=== PATIENT | female | born 1990 | race Caucasian/White ===

== ENCOUNTER 2017-09-10 12:05 | Emergency (ER) | payer OTHER ==
[2017-09-10] MEDS ORDERED: IPRATROPIUM-ALBUTEROL 3 ML NEB INHALATION STA (12:37)
[2017-09-10] MEDS ORDERED: IBUPROFEN 400 MG TAB PO STA (12:37)
[2017-09-10] MEDS ORDERED: ACETAMINOPHEN TAB 500 MG TAB PO STA (12:37)
[2017-09-10] MEDS ORDERED: PROMETHAZ-COD 6.25-10 MG/5 ML 5 ML CUP PO STA (12:42)
--- NOTE | 2017-09-10 12:45 | ED ---
URI HPI - General Chief Complaint: Upper Respiratory Infection Stated Complaint: Cough Time Seen by Provider: 09/10/17 12:32 Source: patient, RN notes reviewed, old records reviewed Mode of arrival: ambulatory Limitations: no limitations - History of Present Illness Initial Comments: This patient is a 27-year-old female presents emergency Department with 4 days of dry cough. She reports that she's been having a 1 day of right ear pain as well. She states that her friend's children are sick but her children and she states that she is a nonsmoker no history of asthma. She denies any specific chest pain. She states that when she takes a deep breath and she feels like it is very tight. She's reports that she's used inhalers child but nothing recently. Patient states that she has not had any recent vxfe-mgc-zybonhn medication including Motrin or Tylenol.Patient denies any recent chest pain, back pain, abdominal pain, nausea vomiting, numbness or tingling, dysuria or hematuria, constipation or diarrhea, headaches or visual changes, or any other current symptoms - Related Data Previous Rx's Medication Instructions Recorded Xgh-Lkad-Oztgn Acid 1 each PO DAILY #90 cap 07/03/14 [-U Capsule (formulary)] Albuterol Inhaler [Ventolin Hfa 1 - 2 puff INHALATION Q6HR PRN #1 09/10/17 Inhaler] inhaler Azithromycin [Zithromax] 250 mg PO DIRECTED #6 tab 09/10/17 Promethazine/Dextromethorphan 5 ml PO TID #120 ml 09/10/17 [Phenergan DM Syrup] methylPREDNISolone Dose Pack 4 mg PO DIRECTED #21 package 09/10/17 [Medrol Dose Pack] Allergies Allergy/AdvReac Type Severity Reaction Status Date / Time No Known Allergies Allergy Verified 09/10/17 12:28 Review of Systems ROS Statement: Those systems with pertinent positive or pertinent negative responses have been documented in the HPI. ROS Other: All systems not noted in ROS Statement are negative. Past Medical History Past Medical History: No Reported History Additional Past Medical History / Comment(s): Morbid obesity History of Any Multi-Drug Resistant Organisms: None Reported, MRSA Date of last positivie culture/infection: 2006 MDRO Source:: LEG Past Surgical History: Cholecystectomy Past Psychological History: No Psychological Hx Reported Smoking Status: Former smoker Past Alcohol Use History: Rare Past Drug Use History: None Reported - Past Family History Brother(s) History Unknown: Yes Family Medical History: Cancer Mother History Unknown: Yes Family Medical History: Cancer General Exam - General Exam Comments Initial Comments: 27-year-old female. No distress. Limitations: no limitations General appearance: alert, in no apparent distress Head exam: Present: atraumatic, normocephalic, normal inspection Eye exam: Present: normal appearance, PERRL, EOMI. Absent: scleral icterus, conjunctival injection, periorbital swelling ENT exam: Present: normal exam, mucous membranes moist Neck exam: Present: normal inspection. Absent: tenderness, meningismus, lymphadenopathy Respiratory exam: Present: wheezes (Patient has some minor wheezing noted. She has a nonproductive persistent cough.). Absent: normal lung sounds bilaterally , respiratory distress, rales, rhonchi, stridor Cardiovascular Exam: Present: regular rate, normal rhythm, normal heart sounds. Absent: systolic murmur, diastolic murmur, rubs, gallop, clicks GI/Abdominal exam: Present: soft, normal bowel sounds. Absent: distended, tenderness, guarding, rebound, rigid Extremities exam: Present: normal inspection, full ROM, normal capillary refill. Absent: tenderness, pedal edema, joint swelling, calf tenderness Back exam: Present: normal inspection Neurological exam: Present: alert, oriented X3, CN II-XII intact Psychiatric exam: Present: normal affect, normal mood Skin exam: Present: warm, dry, intact, normal color. Absent: rash Course Vital Signs 09/10/17 09/10/17 09/10/17 12:26 12:48 12:54 Temperature 99.4 F Pulse Rate 125 H 118 H 118 H Respiratory 24 Rate Blood Pressure 133/77 O2 Sat by Pulse 96 Oximetry Medical Decision Making - Medical Decision Making This patient is a 27-year-old female presents emergency Department treatment 4 days of upper respiratory congestion cough, right ear pain. At this time she has a significant nonproductive cough. Was given Motrin and Tylenol, and cough syrup. She did have a low-grade fever when she arrived emergency department. Patient did have some wheezing noted she was given a DuoNeb breathing treatment does have improvement. Patient chest x-ray was reviewed and negative for any acute process at this time. Discussion the past the window for treatment and azithromycin. I discussed following up with PCP. Discussed all questions. Return parameters were discussed. - Radiology Data Radiology results: report reviewed Patient chest x-rays reviewed and negative for any acute process. Disposition Clinical Impression: Bronchitis Disposition: HOME SELF-CARE Condition: Good Instructions: Upper Respiratory Infection in Children (ED) Additional Instructions: Patient is advised to follow-up with primary care physician. Take medications as prescribed using the inhaler as well for shortness of breath. Patient should rest, increase her fluid intake. Return to the emergency department if any alarming signs or symptoms occur. Prescriptions: Albuterol Inhaler [Ventolin Hfa Inhaler] 1 - 2 puff INHALATION Q6HR PRN #1 inhaler PRN Reason: Shortness Of Breath Azithromycin [Zithromax] 250 mg PO DIRECTED #6 tab methylPREDNISolone Dose Pack [Medrol Dose Pack] 4 mg PO DIRECTED #21 package Promethazine/Dextromethorphan [Phenergan DM Syrup] 5 ml PO TID #120 ml Referrals: None,Stated [Primary Care Provider] - 1-2 days Florence Burks MD [STAFF PHYSICIAN] - 1-2 days Time of Disposition: 13:13
--- NOTE | 2017-09-10 13:17 | XR ---
EXAMINATION TYPE: XR chest 2V DATE OF EXAM: 09/10/2017 COMPARISON: Prior chest x-ray 02/03/2014 HISTORY: Cough and congestion TECHNIQUE: Frontal and lateral views of the chest are obtained. FINDINGS: There is no focal air space opacity, pleural effusion, or pneumothorax seen. The cardiac silhouette size is within normal limits. The osseous structures are intact. Linear metallic density is superimposed over the neck. There is a spinal curvature. Surgical clips present in the right uppe r quadrant. There is bronchial wall thickening. IMPRESSION: Correlate for bronchitis, reactive airways disease, follow-up as indicated. Additional f indings above.
[2017-09-10 13:27] VITALS: BP 149/81; PULSE 99; RESP 20; TEMP 97.8
== END 2017-09-10 13:27 | disposition home or self-care (01) ==
LOC: EC 12:05
DX: J40 Bronchitis, not specified as acute or chronic (principal); H92.01 Otalgia, right ear; E66.01 Morbid (severe) obesity due to excess calories; Z68.42 Body mass index [BMI] 45.0-49.9, adult; Z87.891 Personal history of nicotine dependence
CPT/HCPCS: 71046; 94640; 99284

== ENCOUNTER 2020-04-26 11:31 | Inpatient (IN) | payer OTHER ==
[2020-04-26] MEDS ORDERED: CITRIC ACID-SODIUM CITRATE 15 ML CUP PO ONE (12:11)
[2020-04-26] MEDS ORDERED: ceFAZolin 3 GM in SODIUM CHLORIDE 0.9% 100 ML IVPB ONE (12:11)
--- NOTE | 2020-04-26 12:21 | P.HPOB ---
History of Present Illness H&P Date: 04/26/20 Chief Complaint: Strong regular uterine contractions. This is a 29-year-old female 2 para 1001 EDC 05/05/2020 at 38+ weeks gestation. Patient presents today with strong regular uterine contractions which she is rating 9 out of 10. She denies vaginal bleeding or fluid leakage. Fetus is been active throughout the with weekly nonstress tests performed. She is scheduled for repeat section and tubal ligation on 05-16. Past medical history is significant for morbid obesity, and abnormal placental pathology from 2014 revealing advanced maternal and vascular with a. Patient also has a history of childhood asthma. Past surgical history low transverse section 2014, cholecystectomy 2006. Current medications vitamins. ALLERGIES none known. Family history significant for diabetes uterine cancer and breast cancer. Social history patient is single, father of the baby is present. She is a former tobacco smoker but states she quit. She is employed at [employer]. history significant for blood type A positive, rubella status immune. VDRL testing, urine culture, hepatitis B surface antigen, HIV testing, gonorrhea and chlamydia cultures all negative. One-hour Glucola 117. On exam patient is 375 pounds, 5 foot 8 inches, blood pressure 147/98 on admission, initial pulse 150. The general physical exam is significant for poor dentition, tattoos on the body, morbid obesity. Chest is clear in all martínez. Cervix is fingertip, 50% effaced, -2 station, vertex presentation. heart rate is in the 140s with accelerations, however several subtle late decelerations are also noted. Uterine contractions are occurring approximately every 2 minutes apart and are strong in intensity. Impression: 38-5/7 weeks intrauterine , for repeat section in 2 days with tubal ligation, presenting in active labor. Occasional subtle late decelerations noted on heart tracing. Morbid obesity noted. Plan: Patient has been nothing by mouth since 10:00 last night. We will proceed with the repeat low transverse section and tubal ligation at this time. All risks benefits and alternatives have been discussed. Again patient is requesting tubal ligation with Filshie clips which will be performed, consents on the patient's chart. Review of Systems Constitutional: Reports as per HPI Past Medical History Past Medical History: No Reported History, Asthma Additional Past Medical History / Comment(s): Morbid obesity History of Any Multi-Drug Resistant Organisms: None Reported, MRSA Date of last positivie culture/infection: 2006 MDRO Source:: LEG Past Surgical History: Cholecystectomy Smoking Status: Former smoker - Past Family History Brother(s) History Unknown: Yes Family Medical History: Cancer Mother History Unknown: Yes Family Medical History: Cancer Medications and Allergies Home Medications Medication Instructions Recorded Confirmed Type Crd-Odch-Nkavx Acid 1 each PO DAILY #90 cap 07/03/14 04/26/20 Rx [-U Capsule (formulary)] Allergies Allergy/AdvReac Type Severity Reaction Status Date / Time No Known Allergies Allergy Verified 04/26/20 11:32 Exam Intake and Output 04/25/20 04/26/20 04/26/20 22:59 06:59 14:59 Other: Weight 174.179 kg See dictation under HPI Assessment and Plan Assessment: 38-5/7 weeks intrauterine , scheduled for repeat section in 2 days, in active labor. Subtle late decelerations noted. Requesting tubal ligation. Morbid obesity noted. Plan: We will proceed with primary low transverse section at this time. Tubal ligation will be performed. Antibiotic prophylaxis. All risks and benefits discussed in detail. Time with Patient: Less than 30
[2020-04-26] MEDS: LACTATED RINGERS 1,000 ML IV SCH ×3 (12:32→21:25)
[2020-04-26 12:48] LABS: Basophils # (A) 0.1 k/uL (0-0.2); Basophils % (A) 0 %; Eosinophils # (A) 0.2 k/uL (0-0.7); Eosinophils % (A) 1 %; HCT 44.3 % (34.0-46.0); HGB 14.6 gm/dL (11.4-16.0); Lymphocytes # (A) 3.2 k/uL (1.0-4.8); Lymphocytes % (A) 14 %; MCH 28.5 pg (25.0-35.0); MCV 86.5 fL (80.0-100.0); Mean Platelet Volume 7.7; Monocytes # (A) 1.1 k/uL (0-1.0); Monocytes % (A) 5 %; Neutrophils # (A) 18.7 k/uL (1.3-7.7); Neutrophils % (A) 80 %; Platelet Count 387 k/uL (150-450); RBC 5.12 m/uL (3.80-5.40); RDW 13.2 % (11.5-15.5); WBC 23.4 k/uL (3.8-10.6)
[2020-04-26] MEDS ORDERED: ePHEDrine SULFATE/0.9% NACL/PF 50 MG/5 ML SYRINGE IV ONE (13:35)
[2020-04-26] MEDS ORDERED: KETOROLAC 15 MG/ML 1 ML VIAL ONE (13:35)
[2020-04-26] MEDS ORDERED: MORPHINE SULFATE (PF) 0.3 MG/0.3 ML SYR ONE (13:35)
[2020-04-26] MEDS ORDERED: PHENYLEPHRINE-0.9% NACL SYG 1 MG/10 ML SYRINGE ONE (13:35)
[2020-04-26] MEDS ORDERED: OXYTOCIN 10 UNIT/ML 1 ML VIAL ONE (13:35)
[2020-04-26] MEDS ORDERED: NALBUPHINE 10 MG/ML (1 ML AMP) ONE (13:35)
[2020-04-26] MEDS ORDERED: ONDANSETRON 4 MG/2 ML VIAL ONE (13:35)
[2020-04-26] MEDS ORDERED: diphenhydrAMINE 50 MG/ML 1 ML VIAL IVP PRN ×2 (14:46)
[2020-04-26] MEDS ORDERED: ONDANSETRON 4 MG/2 ML VIAL IVP PRN (14:46)
[2020-04-26] MEDS ORDERED: METOCLOPRAMIDE 5 MG/ML 2 ML VIAL IVP PRN (14:46)
[2020-04-26] MEDS ORDERED: ACETAMINOPHEN TAB 325 MG TAB PO PRN (14:46)
[2020-04-26] MEDS ORDERED: diphenhydrAMINE 25 MG CAP PO PRN (14:46)
[2020-04-26] MEDS ORDERED: NALOXONE 0.4 MG/ML 1 ML VIAL IV PRN (14:46)
[2020-04-26] MEDS ORDERED: SIMETHICONE 80 MG CHEWABLE PO PRN (14:46)
[2020-04-26] MEDS ORDERED: ZOLPIDEM 5 MG TAB PO PRN (14:46)
[2020-04-26] MEDS ORDERED: diphenhydrAMINE 50 MG CAP PO PRN (14:46)
--- NOTE | 2020-04-26 14:46 | P.OP ---
Date of Procedure: 04/26/20 Preoperative Diagnosis: 38-5/7 weeks intrauterine , previous section declining , undesired fertility, active labor, morbid maternal obesity, late decelerations in triage. Postoperative Diagnosis: Liveborn female infant with scores of 9 and 9 at one and 5 minutes respectively. Normal-appearing tubes and ovaries bilaterally. 12 cm subcutaneous depth. Procedure(s) Performed: Repeat low transverse section, bilateral tubal ligation with Filshie clips Anesthesia: spinal Surgeon: Laura Andres Sieve Maker #1: Jaden Forbes Estimated Blood Loss (ml): 500 IV fluids (ml): 1,200 Urine output (ml): 100 Pathology: other (Placenta) Condition: stable Disposition: PACU Description of Procedure: Patient is brought to the operating room, 4 g of Ancef are given prophylacti tania. Khalil catheter placed to direct drainage. Vaginal prep was performed. Patient was extremely uncomfortable, borderline verbally combat ,in obvious pain of labor but also extremely anxious. The spinal analgesia was administered without difficulty. Patient is placed in the dorsal supine position. Left lateral uterine displacement is given. The abdomen is prepped and draped in usual sterile fashion. The pannus retractor is placed and seated appropriately. The analgesia is checked and noted to be adequate. A repeat low transverse skin incision is made in this is carried down through the subcutaneous tissue which is approximately 12 cm in depth. The fascia is isolated, scored, extended bilaterally with curved Rocha scissors. Peritoneum is next identified and incised, there is no bowel or bladder involvement. The large ring retractor is placed in the abdomen and seated properly for good exposure. The bladder flap is taken down with Metzenbaum scissors and Wallisian. A low transverse uterine incision is made. Entering the peritoneal cavity darkly meconium stained fluid is encountered. The incision is extended with blunt dissection. The 's head is delivered in the occiput anterior position. The oropharynx, nasopharynx, and external nares are bulb suctioned. Patient is officially delivered of a liveborn female infant at 1405 hrs. Umbilical cord is doubly clamped and ligated, she is handed to waiting nurses for evaluation where scores of 9 and 9 at one and 5 minutes respectively are given. weighed 3890 g or 8 lbs. 9 oz. The uterus is then externalized. The placenta is delivered manually, it is inspected and noted to be darkly meconium stained, intact with trivascular cord. Uterus is massaged. It is swept clean with a sterile sponge to avoid any retained products of conception. The uterus is closed in a single full-thickness stitch of 0 Vicryl for excellent reapproximation. Bilateral tubes and ovaries are inspected. Patient's desire for tubal ligation is again reaffirmed. Filshie clips are used in the isthmic portion of the tubes bilaterally with care to visualize the fimbriated ends for proper placement and positioning. The uterus is placed back into the abdominal cavity after the abdomen is suctioned with suction on guard. Bilateral gutters are inspected and cleaned. Incision is again noted to be intact and dry. Fascia is closed in a running stitch of 0 Vicryl with over ligation in the midline. Subcutaneous tissue is irrigated, Bovie catheter used on small vessels. It is reapproximated with 3-0 Vicryl in a running fashion. 4-0 undyed Monocryl is used for final subcuticular closure. Lungs Steri-Strips and Mastisol are applied to the wound. Uterus is massaged. Khalil is noted to be draining clear urine. Patient is brought back to recovery room in very good condition with stable vital signs including blood pressure 140/70, pulse 100.
[2020-04-26] MEDS: SENNOSIDES-DOCUSATE SODIUM 1 EACH TAB PO SCH (21:24)
[2020-04-26] MEDS: IBUPROFEN 600 MG TAB PO PRN (23:19)
[2020-04-27] MEDS ORDERED: diphenhydrAMINE 50 MG/ML 1 ML VIAL IVP PRN ×2 (01:39)
[2020-04-27] MEDS ORDERED: ONDANSETRON 4 MG/2 ML VIAL IVP PRN (01:40)
[2020-04-27] MEDS ORDERED: NALOXONE 0.4 MG/ML 1 ML VIAL IV PRN (01:40)
[2020-04-27] MEDS: LACTATED RINGERS 1,000 ML IV SCH ×3 (02:23→07:29)
--- NOTE | 2020-04-27 06:29 | P.PN ---
Progress Note - Text Date: 04/27/2020 Time: 06:06 The patient is status post section Vital signs stable VAS: 0-10 Patient has no complaints of pain. The patient incurred some minimal itching yesterday, this itching is now subsiding. Pain meds to be managed by service.
--- NOTE | 2020-04-27 07:46 | P.PN ---
Subjective Progress Note Date: 04/27/20 Principal diagnosis: Postoperative day #1 Minimal lochia rubra. Pain well controlled. Requesting dietary advance. No complaints. Objective - Vital Signs Vital signs: Vital Signs Temp 98.5 F 04/27/20 04:00 Pulse 92 04/27/20 04:00 Resp 18 04/27/20 04:00 BP 121/75 04/27/20 04:00 Pulse Ox 97 04/27/20 04:00 Intake & Output 04/26/20 04/27/20 04/27/20 18:59 06:59 18:59 Output Total 400 554 Balance -400 -554 Weight 174.179 kg Output: Urine 250 550 Uretheral (Khalil) 150 Emesis 150 4 Other: Voiding Method Toilet # Voids 0 - Constitutional General appearance: Present: morbidly obese - EENT Eyes: Present: PERRLA ENT: Present: hearing grossly normal - Respiratory Respiratory: bilateral: CTA - Cardiovascular Rhythm: regular - Gastrointestinal General gastrointestinal: Present: normal bowel sounds - Integumentary Integumentary Comment(s): Incision clean and dry, intact. Steri-Strips applied. Fundal exam difficult secondary to excessively large abdominal pannus. Integumentary: Present: normal - Neurologic Neurologic: Present: CNII-XII intact - Musculoskeletal Musculoskeletal: Present: gait normal, strength equal bilaterally - Psychiatric Psychiatric: Present: A&O x's 3, intact judgment & insight - Labs CBC & Chem 7: 04/26/20 12:24 Labs: Abnormal Lab Results - Last 24 Hours (Table) 04/26/20 Range/Units 12:24 WBC 23.4 H (3.8-10.6) k/uL Neutrophils # 18.7 H (1.3-7.7) k/uL Monocytes # 1.1 H (0-1.0) k/uL Assessment and Plan Assessment: Doing well postoperative day #1 Plan: Advance diet and activity. Prilosec as needed. Continue postoperative care. Anticipate discharge home tomorrow. Time with Patient: Less than 30
[2020-04-27 07:53] LABS: Basophils # (A) 0.1 k/uL (0-0.2); Basophils % (A) 0 %; Eosinophils # (A) 0.1 k/uL (0-0.7); Eosinophils % (A) 0 %; HCT 38.9 % (34.0-46.0); HGB 12.7 gm/dL (11.4-16.0); Lymphocytes # (A) 1.8 k/uL (1.0-4.8); Lymphocytes % (A) 10 %; MCH 28.9 pg (25.0-35.0); MCHC 32.6 g/dL (31.0-37.0); MCV 88.5 fL (80.0-100.0); Mean Platelet Volume 7.7; Monocytes # (A) 0.8 k/uL (0-1.0); Monocytes % (A) 4 %; Neutrophils # (A) 16.2 k/uL (1.3-7.7); Neutrophils % (A) 85 %; Platelet Count 305 k/uL (150-450); RDW 12.9 % (11.5-15.5); WBC 19.2 k/uL (3.8-10.6)
[2020-04-27] MEDS: KETOROLAC 15 MG/ML 1 ML VIAL IVP SCH ×2 (08:19→15:00)
[2020-04-27] MEDS: SENNOSIDES-DOCUSATE SODIUM 1 EACH TAB PO SCH ×2 (08:52→20:23)
[2020-04-27] MEDS: PANTOPRAZOLE 40 MG TABLET PO SCH (09:58)
[2020-04-27] MEDS: HYDROcodone/APAP 5-325MG 1 EACH TAB PO PRN ×2 (12:34→23:09)
[2020-04-27 23:51] VITALS: RESP 16
[2020-04-28] MEDS: IBUPROFEN 600 MG TAB PO PRN ×2 (05:58→14:05)
--- NOTE | 2020-04-28 07:59 | P.DS ---
Providers Date of admission: 04/26/20 12:02 Expected date of discharge: 04/28/20 Attending physician: Laura Andres Primary care physician: Stated None Hospital Course: This is a 29-year-old female 2 para 1001 EDC 05/06/2020 at 38-5/7 weeks' gestation. Patient was scheduled for repeat section and tubal ligation, however presented in active spontaneous labor. In addition, late decelerations were noted in the triage area. Patient was excessively anxious upon admission. Decision was made to proceed with section and tubal ligation at the time of admission. Group B strep cultures negative, rubella status immune, blood type A+. Please see dictated history and physical for details. Patient underwent a repeat low transverse section and tubal ligation, my estimated blood loss at this time of surgery was 500 mL's. She gave to a liveborn female infant with scores of 9 and 9 at one and 5 minutes respectively. weighed 3890 g or 8 lbs. 9 oz. There was dark meconium- stained fluid noted at the time of surgery. Please see dictated operative note for details. This morning the patient is doing well. She is voiding, ambulating, passing flatus without difficulty. Vital signs are stable and she is afebrile. Incision is clean and dry, intact with Steri-Strips applied. Minimal lochia rubra. Breasts are not engorged. is doing well. Patient is judged to be in good condition for discharge home. I reminded her no intercourse, tampons or douching. She will use xhbz-les-ohdduun Advil or Aleve, or Motrin as needed for pain. I've asked her to call me with any fevers shakes or chills, foul smelling or copious lochia, with the passage of large blood clots, with any pain not alleviated by fbif-cda-nylbaxb products, or indeed with any concerns. Assessment: Doing well postoperative day #2 Health Concerns: Morbid obesity Patient Condition at Discharge: Good Plan - Discharge Summary Discharge Rx Participant: No New Discharge Prescriptions: No Action Swr-Zrjh-Gfnlw Acid [-U Capsule (formulary)] 1 each PO DAILY #90 cap Discharge Medication List Str-Wuru-Lqszr Acid [-U Capsule (formulary)] 1 each PO DAILY #90 cap 07/03/14 [Rx] Follow up Appointment(s)/Referral(s): Laura Andres MD [STAFF PHYSICIAN] - 2 Weeks Discharge Disposition: HOME SELF-CARE
[2020-04-28 08:51] VITALS: BP 141/78; PULSE 79; TEMP 97.9
[2020-04-28] MEDS: SENNOSIDES-DOCUSATE SODIUM 1 EACH TAB PO SCH (09:09)
[2020-04-28] MEDS: PANTOPRAZOLE 40 MG TABLET PO SCH (09:09)
[2020-04-28] MEDS: HYDROcodone/APAP 5-325MG 1 EACH TAB PO PRN (10:30)
== END 2020-04-28 15:30 | disposition home or self-care (01) | DRG 784 ==
LOC: FBPOP 11:31 → 4FBP 12:02
PROVIDERS: ADMIT Obstetrics & Gynecology; ATTEND Obstetrics & Gynecology
PROC: 10D00Z1 Extraction of Products of Conception, Low, Open Approach (ICD-10-PCS; principal; 2020-04-26 13:35)
PROC: 0UL70CZ Occlusion of Bilateral Fallopian Tubes with Extraluminal Device, Open Approach (ICD-10-PCS; principal; 2020-04-26 13:35)
DX: O34.211 Maternal care for low transverse scar from previous cesarean delivery (principal); Z68.43 Body mass index [BMI] 50.0-59.9, adult; O76 Abnormality in fetal heart rate and rhythm complicating labor and delivery; O77.0 Labor and delivery complicated by meconium in amniotic fluid; O99.214 Obesity complicating childbirth; E66.01 Morbid (severe) obesity due to excess calories; Z30.2 Encounter for sterilization; Z37.0 Single live birth; Z3A.38 38 weeks gestation of pregnancy; Z80.3 Family history of malignant neoplasm of breast; Z80.49 Family history of malignant neoplasm of other genital organs; Z83.3 Family history of diabetes mellitus; Z87.09 Personal history of other diseases of the respiratory system; Z87.891 Personal history of nicotine dependence; Z90.49 Acquired absence of other specified parts of digestive tract; Z86.14 Personal history of Methicillin resistant Staphylococcus aureus infection
CPT/HCPCS: 59025; 84112; 85025; 86850; 86900; 86901; 99213

== ENCOUNTER → 2020-08-10 | Outpatient (CLI) | payer OTHER ==
[2020-08-10 13:34] VITALS: BP 135/96; PULSE 78; RESP 16; TEMP 98.1; BMI 55.2
[2020-08-10 15:22] LABS: HCT 41.3 % (34.0-46.0); HGB 14.2 gm/dL (11.4-16.0); MCH 29.6 pg (25.0-35.0); MCHC 34.5 g/dL (31.0-37.0); MCV 85.9 fL (80.0-100.0); Mean Platelet Volume 7.7; Platelet Count 304 k/uL (150-450); RDW 12.8 % (11.5-15.5); WBC 9.9 k/uL (3.8-10.6)
--- NOTE | 2020-08-10 17:20 | P.HPBAR ---
Bariatric H&P - History & Physicial H&P Date: 08/10/20 History & Physicial: Visit/CC: Initial Visit Patient initial contact: Initial weight: 164.654 kg Initial weight in pounds: 363.00 Height: 5 ft 8 in Initial BMI: 55.2 Last weight: Current weight: 164.654 kg Current weight in pounds: 363.00 Current BMI: 55.2 [place] body weight (based on NIH guidelines): 63.503 kg Excess body weight loss: 0.0% The patient is a 30 year-old F who presents for Bariatric Assessment. Patient presents to discuss weight loss surgery. Patient is known to our service from a laparoscopic cholecystectomy performed at age 13. Patient has had progressive weight gain over the years. Current BMI 55. Patient complains of mild GERD symptoms. Denies DVT or dysphagia in the past. No other medical history. Only abdominal surgeries are cholecystectomy and . Does not take any medications. Review of Systems The patient denies any acute changes in vision or hearing, no dysphagia or odynophagia, no chest pain or shortness of breath, no dysuria or hematuria, no headache, no runny nose, no rectal bleeding or melena, no unexplained weight loss Past Medical History Past Medical History: No Reported History Additional Past Medical History / Comment(s): Morbid obesity History of Any Multi-Drug Resistant Organisms: MRSA Year Discovered:: 2006 MDRO Source:: LEG Past Surgical History: Cholecystectomy Past Anesthesia/Blood Transfusion Reactions: No Reported Reaction Past Psychological History: No Psychological Hx Reported Smoking Status: Former smoker Past Alcohol Use History: Rare Additional Past Alcohol Use History / Comment(s): quit smoking 8 years sgo Past Drug Use History: None Reported - Past Family History Brother(s) History Unknown: Yes Family Medical History: Cancer Mother History Unknown: Yes Family Medical History: Cancer Surgical - Exam Vital Signs Temp Pulse Resp BP 98.1 F 78 16 135/96 08/10/20 13:30 08/10/20 13:30 08/10/20 13:30 08/10/20 13:30 Physical exam: General: Well-developed, well-nourished HEENT: Normocephalic, sclerae nonicteric Abdomen: Nontender, nondistended Extremities: No edema Neuro: Alert and oriented Results - Labs 08/10/20 14:28 Bariatric Assessment & Plan (1) Morbid obesity with BMI of 50.0-59.9, adult Narrative/Plan: 30-year-old female with morbid obesity. Surgical options reviewed in detail. Both gastric bypass and sleeve gastrectomy reviewed as surgical options. Risks and benefits of both procedures discussed. Patient remains interested in sleeve gastrectomy. We will plan preoperative EGD. Patient to be seen by her primary care physician. Medical clearance and support documentation will be obtained. The risks of bleeding, infection, stenosis, stricture, leak, abscess, fistula formation, peritonitis, poor weight loss, reflux, vomiting, conversion to an open procedure, aborting sleeve gastrectomy, UT, PE, DVT, and were discussed. The patient understands and wishes to proceed. Status: Acute Bariatric Checklist Checklist: Plan: Checklist: EGD: 1. Hiatal hernia: 2. H. Pylori: HgbA1c: Vitamin D: Smoking: Former smoker Primary care physician referral: Working on getting one Psychiatry clearance: Cardiology clearance: Sleep study: Diet journal: VTE risk score: VTE risk level: Rehab needs at discharge:
[2020-08-11 02:23] LABS: African American GFR (CKD) 132.9 (60.0-200.0); Albumin 4.5 g/dL (3.80-4.90); Albumin/Globulin Ratio 2.25 (1.60-3.17); Anion Gap 6.7 mmol/L (4.00-12.00); BUN/Creat Ratio 15.71 Ratio (12.00-20.00); Calcium 9.9 mg/dL (8.7-10.3); Carbon Dioxide 28.3 mmol/L (21.6-31.8); Non-African American GFR(CKD) 114.6 (60.0-200.0); Potassium 4.5 mmol/L (3.5-5.5); Total Bilirubin 0.2 mg/dL (0.3-1.2); Total Protein 6.5 g/dL (6.2-8.2)
[2020-08-11 02:31] LABS: Folate, Serum 6.9 ng/mL
[2020-08-11 03:34] LABS: Hemoglobin A1C 5.6 % (4.0-6.0)
== END | disposition home or self-care (01) ==
LOC: BARWHC3 13:09
PROVIDERS: ATTEND Surgery
DX: E66.01 Morbid (severe) obesity due to excess calories (principal); Z68.43 Body mass index [BMI] 50.0-59.9, adult; K90.89 Other intestinal malabsorption; E55.9 Vitamin D deficiency, unspecified
CPT/HCPCS: 84425; 80053; 82607; 82746; 85027; 82306; 83036; 93005; 36415; G0463; 99211

== ENCOUNTER → 2022-10-22 | Outpatient (CLI) | payer OTHER ==
[2022-10-22 13:51] VITALS: BP 142/85; PULSE 86; TEMP 98.1; BMI 57.6
--- NOTE | 2022-10-22 16:48 | P.BASOAP ---
Subjective Progress Note Date: 10/22/22 Principal diagnosis: Morbid obesity Patient returns to reinitiate bariatric workup. She was last seen in July 2020. Shortly thereafter the patient found out she was . Since that time the patient has had enlarging umbilical hernia. She was seen in my general surgery office last year for this. We discussed possibly proceeding with bariatric surgery first. Since she was seen in that office however the hernias gotten larger. Mild soreness at times. No nausea or vomiting. No imaging. Objective - Vital Signs Vital signs: Vital Signs Temp 98.1 F 10/22/22 13:42 Pulse 86 10/22/22 13:42 Resp BP 142/85 10/22/22 13:42 Pulse Ox FiO2 Intake & Output 10/21/22 10/22/22 10/22/22 18:59 06:59 18:59 Weight 169.644 kg - Exam Abdomen: Soft, obese, large incarcerated periumbilical hernia Assessment/Plan (1) Morbid obesity with BMI of 50.0-59.9, adult Narrative/Plan: 32-year-old female with enlarging umbilical hernia. Options reviewed. Will check CT abdomen and pelvis at this time. Patient may require repair of this hernia with possible umbolectomy prior to bariatric surgery. We'll contact patient after CAT scan obtained. Plan: Date: 10/22/22 Initial Weight: 164.654 kg Initial BMI: 56.0 Current Weight: 169.644 kg Current BMI: 57.6 Type of Surgery: Total Volume in Band: Previous Volume: Volume Removed: Volume Added: Band Size:
== END ==
LOC: BARWHC3 13:19
PROVIDERS: ATTEND Surgery
DX: E66.01 Morbid (severe) obesity due to excess calories (principal); K42.9 Umbilical hernia without obstruction or gangrene; Z68.43 Body mass index [BMI] 50.0-59.9, adult; Z87.891 Personal history of nicotine dependence
CPT/HCPCS: 99211

== ENCOUNTER → 2022-10-28 | Outpatient (CLI) | payer OTHER ==
[2022-10-28 15:29] LABS: HCT 40.1 % (37.2-46.3); HGB 13.3 g/dL (12.0-15.0); MCH 28.9 pg (27.0-32.0); MCHC 33.2 g/dL (32.0-37.0); Mean Platelet Volume 10.7 fL (9.5-12.2); NRBC Per 100 WBC 0 /100 WBCS (0.0-0.0); Platelet Count 339 X 10*3/uL (140-440); RBC 4.61 X 10*6/uL (4.10-5.20); RDW 12.3 % (11.5-14.5); WBC 12.16 X 10*3/uL (4.50-10.00)
[2022-10-28 16:49] LABS: ALT 14 U/L (8-44); AST 12 U/L (13-35); African American GFR (CKD) 133.4 (60.0-200.0); Albumin/Globulin Ratio 1.54 (1.60-3.17); Alkaline Phosphatase 53 U/L (41-126); BUN/Creat Ratio 14.59 Ratio (12.00-20.00); Blood Urea Nitrogen 9.7 mg/dL (9.0-27.0); Calcium 9.2 mg/dL (8.7-10.3); Carbon Dioxide 24.5 mmol/L (20.0-27.5); Chloride 105 mmol/L (96-109); Globulin 2.6 g/dL (1.6-3.3); Glucose 135 mg/dL (70-110); Iron 45 ug/dL (50-170); Non-African American GFR(CKD) 115.1 (60.0-200.0); Potassium 4.5 mmol/L (3.5-5.5); Sodium 138 mmol/L (135-145); Total Bilirubin <0.15 mg/dL (0.30-1.20); Total Protein 6.6 g/dL (6.2-8.2)
== END | disposition home or self-care (01) ==
LOC: LABWHC1 11:52
PROVIDERS: ATTEND Surgery
DX: E66.01 Morbid (severe) obesity due to excess calories (principal); K90.89 Other intestinal malabsorption; E55.9 Vitamin D deficiency, unspecified; R00.0 Tachycardia, unspecified
CPT/HCPCS: 36415; 80053; 82306; 82607; 82746; 83036; 83540; 84425; 85027; 93005

== ENCOUNTER → 2022-11-12 | Outpatient (CLI) | payer OTHER ==
--- NOTE | 2022-11-12 22:37 | CT ---
EXAMINATION TYPE: CT abdomen pelvis w con DATE OF EXAM: 11/12/2022 COMPARISON: None INDICATION: umbilical hernia DLP: 1980 mGycm, Automated exposure control for dose reduction was used. CONTRAST: 100ml mL of Isovue 300. Study performed with Oral Contrast TECHNIQUE: Axial images were obtained from above the diaphragm to the pubic rami in the axial plane a t 5 mm thick sections. Reconstructed images are reviewed on the computer in the coronal plane. Ther e is some limitation due to body habitus FINDINGS: Limited CT sections are obtained the lung bases. The lung bases are clear. CT ABDOMEN: Liver: Normal Spleen: Normal Pancreas: Normal Adrenal glands: The adrenal glands are normal. Gallbladder: Surgically absent Kidneys: No masses are evident. No hydronephrosis is present. No cysts are present. Delayed images were obtained through the kidneys, which remain unremarkable. Aorta: Normal Inferior vena cava: Normal. CT PELVIS: There is an anterior abdominal wall hernia at the level of the pelvis. This has an opening of 6.6 cm. There are nondilated loops of small bowel within. Contrast passes into this region withou t contrast exiting.. However, obstruction is not identified. Loops of bowel within the abdomen and pelvis are normal. There are loops of bowel which are incom pletely distended or lack oral contrast limiting their evaluation. Appendix: Normal as visualized. Urinary bladder: Normal. Genitourinary structures: Uterus is normal. There may be a cyst on the left kidney measuring 2.4 cm. Right adnexa appears normal. Osseous structures: No suspicious lytic or sclerotic lesions. IMPRESSIONS: 1. Anterior abdominal wall hernia with an opening of 6.6 cm containing nondilated loops of small bow el. No obstruction is identified.
== END | disposition home or self-care (01) ==
LOC: RADCTMAIN 12:40
PROVIDERS: ATTEND Surgery
DX: K42.9 Umbilical hernia without obstruction or gangrene (principal); K43.9 Ventral hernia without obstruction or gangrene
CPT/HCPCS: 74177; Q9967

== ENCOUNTER 2023-02-03 09:40 | Observation (INO) | payer OTHER ==
[2023-01-27 16:02] VITALS: BMI 56.5
[~2023-02-03 09:40] MED LIST: ACETAMINOPHEN TAB 500 MG TAB PO PRN; DEXAMETHASONE SOD PHOSPHATE 4 MG/ML 1 ML VIAL IV ONE; HEPARIN SODIUM,PORCINE/PF 5,000 UNIT/0.5 ML SYRINGE SQ PRN; LACTATED RINGERS 1,000 ML IV SCH; MIDAZOLAM 2 MG/2 ML VIAL IV PRN; ONDANSETRON 4 MG/2 ML VIAL IVP ONE; SCOPOLAMINE 1 MG/72 HR PATCH TRANSDERM ONE; ceFAZolin 3 GM in SODIUM CHLORIDE 0.9% 100 ML IVPB PRN
[2023-02-03 10:33] LABS: Basophils % (A) 0 %; Eosinophils # (A) 0.2 k/uL (0-0.7); Eosinophils % (A) 2 %; HCT 44.3 % (34.0-46.0); HGB 14.8 gm/dL (11.4-16.0); Lymphocytes # (A) 2.1 k/uL (1.0-4.8); Lymphocytes % (A) 18 %; MCH 29.5 pg (25.0-35.0); MCHC 33.3 g/dL (31.0-37.0); MCV 88.6 fL (80.0-100.0); Mean Platelet Volume 8.4; Monocytes # (A) 0.5 k/uL (0-1.0); Monocytes % (A) 4 %; Neutrophils # (A) 9.1 k/uL (1.3-7.7); Neutrophils % (A) 76 %; Platelet Count 338 k/uL (150-450); RDW 12.6 % (11.5-15.5)
--- NOTE | 2023-02-03 11:05 | P.GSHP ---
History of Present Illness H&P Date: 02/03/23 Chief Complaint: Incarcerated umbilical hernia 32-year-old female known to our service. She is being followed through the bariatric center and my general surgery office. Patient has had complaints of an enlarging hernia at the umbilicus. CAT scan shows it contains a large volume of bowel. Fascial defect proximally 6-7 cm. Patient is incision surgical weight loss. Given the size and symptoms related to this hernia we have opted to fix the hernia first. Occasional bowel cramps with eating. Past Medical History Past Medical History: No Reported History Additional Past Medical History / Comment(s): BACK PAIN History of Any Multi-Drug Resistant Organisms: MRSA Date of last positivie culture/infection: 2006 MDRO Source:: LEG Past Surgical History: Section, Cholecystectomy, Tubal Ligation Past Anesthesia/Blood Transfusion Reactions: No Reported Reaction Past Psychological History: No Psychological Hx Reported Smoking Status: Former smoker Past Alcohol Use History: None Reported Past Drug Use History: Marijuana - Past Family History Sister(s) Family Medical History: Cancer Additional Family Medical History / Comment(s): CERVICAL Brother(s) History Unknown: Yes Family Medical History: Cancer Mother History Unknown: Yes Family Medical History: Cancer Medications and Allergies Home Medications Medication Instructions Recorded Confirmed Type Cholecalciferol [Vitamin D3 (25 25 mcg PO DIRECTED 01/27/23 02/03/23 History Mcg = 1000 Iu)] Ferrous Sulfate [Feosol] 325 mg PO DAILY 01/27/23 02/03/23 History Ibuprofen [Motrin Ib] 200 mg PO Q8H PRN 01/27/23 02/03/23 History Allergies Allergy/AdvReac Type Severity Reaction Status Date / Time latex Allergy Rash/Hives Verified 02/03/23 10:06 Surgical - Exam Vital Signs Temp Pulse Resp BP Pulse Ox 97.5 F L 85 16 153/64 98 02/03/23 10:10 02/03/23 10:10 02/03/23 10:10 02/03/23 10:10 02/03/23 10:10 Physical exam: General: Well-developed, well-nourished HEENT: Normocephalic, sclerae nonicteric Abdomen: Nontender, nondistended large incarcerated umbilical hernia, umbilical skin slightly ischemic appearing Extremities: No edema Neuro: Alert and oriented Results - Labs 02/03/23 10:22 Abnormal Lab Results - Last 24 Hours (Table) 02/03/23 Range/Units 10:22 WBC 12.0 H (3.8-10.6) k/uL Neutrophils # 9.1 H (1.3-7.7) k/uL Assessment and Plan (1) Incarcerated umbilical hernia Narrative/Plan: 32-year-old female with incarcerated umbilical hernia. We'll proceed with open repair incarcerated umbilical hernia with mesh. We will plan umbilectomy as well with the procedure. Risks of bleeding, infection, recurrence, bladder and bowel injury, numbness, nerve injury were discussed with the patient. The patient understands and wishes to proceed. Current Visit: Yes Status: Acute Code(s): K42.0 - UMBILICAL HERNIA WITH OBS TRUCTION, WITHOUT GANGRENE SNOMED Code(s): 762265499
[2023-02-03] MEDS ORDERED: ROCURONIUM 10 MG/ML (5 ML VIAL) IV ONE (11:14)
[2023-02-03] MEDS ORDERED: SUCCINYLCHOLINE CHLORIDE 200 MG/10 ML VIAL IV ONE (11:14)
[2023-02-03] MEDS ORDERED: GLYCOPYRROLATE 0.2 MG/ML 2 ML VIAL ONE (11:14)
[2023-02-03] MEDS ORDERED: MIDAZOLAM 2 MG/2 ML VIAL ONE (11:14)
[2023-02-03] MEDS ORDERED: KETOROLAC 30 MG/ML 1 ML VIAL ONE (11:14)
[2023-02-03] MEDS ORDERED: HYDROmorphone (PF) 1 MG/ML ONE (11:14)
[2023-02-03] MEDS ORDERED: ACETAMINOPHEN IV (For NPO) 1,000 MG/100 ML VIAL ONE (11:14)
[2023-02-03] MEDS ORDERED: LIDOCAINE 2% INJ 20 MG/ML (2 ML VIAL) ONE (11:14)
[2023-02-03] MEDS ORDERED: fentaNYL (PF) 50 MCG/ML 2 ML AMP ONE (11:14)
[2023-02-03] MEDS ORDERED: NEOSTIGMINE 1 MG/ML 10 ML VIAL ONE (11:14)
[2023-02-03] MEDS ORDERED: ONDANSETRON 4 MG/2 ML VIAL ONE (11:14)
[2023-02-03] MEDS ORDERED: PROPOFOL 10 MG/ML 20 ML VIAL IV ONE (11:14)
[2023-02-03] MEDS ORDERED: BUPIVACAINE (PF) 0.25% 30 ML VIAL SQ ONE ×2 (11:38)
[2023-02-03] MEDS ORDERED: LACTATED RINGERS 1,000 ML IV ONE ×3 (13:03→14:30)
[2023-02-03] MEDS ORDERED: NALOXONE 0.4 MG/ML 1 ML VIAL IV PRN (13:04)
[2023-02-03] MEDS ORDERED: HYDROmorphone 1 MG/ML 1 ML SYRINGE IVP PRN (13:05)
[2023-02-03] MEDS ORDERED: HYDROcodone/APAP 5-325MG 1 EACH TAB PO PRN (13:05)
[2023-02-03] MEDS ORDERED: HYDROmorphone 0.5 MG/0.5 ML SYRINGE IVP PRN (13:05)
[2023-02-03] MEDS ORDERED: ACETAMINOPHEN TAB 325 MG TAB PO PRN (13:05)
--- NOTE | 2023-02-03 13:13 | P.OP ---
Date of Procedure: 02/03/23 Procedure(s) Performed: PREOPERATIVE DIAGNOSIS: Incarcerated umbilical hernia POSTOPERATIVE DIAGNOSIS: Same PROCEDURE: Open repair incarcerated umbilical hernia with mesh, umbilectomy SURGEON: Dr. Rehman ANESTHESIA: General OPERATIVE PROCEDURE DETAILS: The patient was placed in the operating table in the supine position. An elliptical incision was made around the umbilicus in a horizontal fashion. The subcutaneous tissues were dissected using electrocautery and blunt dissection. The fascia was circumferentially dissected of fat. The hernia sac was then excised using LigaSure. The umbilicus was removed with the adjacent adherent hernia sac. I then closed the peritoneum using a running 2-0 Vicryl suture. The preperitoneal space was then circumferentially dissected using blunt dissection and cautery. Once we had enough space a 12 x 8 cm oval ventrio mesh was placed beneath the fascia and sut ured to the fascia using trans-fascial 0 Ethibond sutures. The defect was then reapproximated using interrupted vest over pants 0 Ethibond sutures. Closure took place in a horizontal fashion. A drain was placed anterior to the fascial closure exiting from the left lower quadrant. This was sutured in place using an Ethibond stitch. The subcutaneous tissues were reapproximated using inverted 2-0 & 3-0 Vicryl sutures. The skin was closed using 4-0 Monocryl sutures. Skin glue and sterile dressings were then applied. HERNIA CHARACTERISTICS: Length: 4 cm Width: 6 cm Type: Incarcerated umbilical TYPE OF MESH USED: 8 x 12 cm Ventrio mesh LOCATION OF MESH: Sub-lay FIXATION: Trans-fascial 0 Ethibond PREOPERATIVE DISCUSSION ON SMOKING CESSASTION: Yes PREOPERATIVE DISCUSSION ON MORBID OBESITY: Yes PREOPERATIVE DISCUSSION ON APPROPRIATE USE OF NARCOTIC USE: Yes PREOPERATIVE EDUCATION: Multi Modal, Smoking Cessation and Weight Loss with BMI over 35. DISPOSITION: Stable to recovery room
[2023-02-03] MEDS: HYDROmorphone 0.5 MG/0.5 ML SYRINGE IVP PRN ×3 (14:09→16:58)
[2023-02-03] MEDS: ONDANSETRON 4 MG/2 ML VIAL IVP PRN ×2 (15:39→20:49)
[2023-02-03] MEDS: KETOROLAC 15 MG/ML 1 ML VIAL IVP SCH (18:19)
[2023-02-03] MEDS: HEPARIN SODIUM,PORCINE/PF 5,000 UNIT/0.5 ML SYRINGE SQ SCH (18:34)
[2023-02-03] MEDS: DOCUSATE 100 MG CAP PO SCH (20:48)
[2023-02-04] MEDS: HEPARIN SODIUM,PORCINE/PF 5,000 UNIT/0.5 ML SYRINGE SQ SCH ×2 (00:25→09:05)
[2023-02-04] MEDS: KETOROLAC 15 MG/ML 1 ML VIAL IVP SCH ×3 (00:26→12:50)
[2023-02-04 08:01] VITALS: BP 121/77; PULSE 78; RESP 18; TEMP 99.1
[2023-02-04 08:47] LABS: Basophils % (A) 0 %; Eosinophils # (A) 0.2 k/uL (0-0.7); Eosinophils % (A) 1 %; HCT 42.2 % (34.0-46.0); HGB 14.2 gm/dL (11.4-16.0); Lymphocytes # (A) 1.9 k/uL (1.0-4.8); Lymphocytes % (A) 12 %; MCH 30.3 pg (25.0-35.0); MCHC 33.8 g/dL (31.0-37.0); MCV 89.7 fL (80.0-100.0); Mean Platelet Volume 8.3; Monocytes # (A) 0.7 k/uL (0-1.0); Monocytes % (A) 5 %; Neutrophils # (A) 12.7 k/uL (1.3-7.7); Neutrophils % (A) 81 %; Platelet Count 343 k/uL (150-450); RDW 12.7 % (11.5-15.5); WBC 15.6 k/uL (3.8-10.6)
[2023-02-04] MEDS ORDERED: PANTOPRAZOLE 40 MG/10 ML VIAL IV SCH (09:00)
[2023-02-04] MEDS: DOCUSATE 100 MG CAP PO SCH (09:05)
[2023-02-04] MEDS ORDERED: Acetaminophen-Codeine 300-30mg TAB PO PRN (09:13)
--- NOTE | 2023-02-04 13:26 | P.DS ---
Providers Date of admission: 02/03/23 13:00 Expected date of discharge: 02/04/23 Attending physician: Kendrick Rehman Consults: 02/03/23 13:05 Consult Physician Routine Consulting Provider: Richard Ojeda Consult Reason/Comments: med mgmt Do you want consulting provider notified?: Yes Primary care physician: Edgar Mike [place] Hospital Course: Discharge diagnosis 1. Incarcerated umbilical hernia status post Open repair incarcerated umbilical hernia with mesh, umbilectomy 2. Leukocytosis likely reactive Hospital course This is a 32-year-old female with an incarcerated umbilical hernia. She is status post Open repair incarcerated umbilical hernia with mesh, umbilectomy. Patient reports her pain is controlled. She is tolerating diet. Her pain is controlled. She has been up and ambulating. She is having bowel movements and flatus. Denies difficulty urinating. Incisional dressing clean dry and intact. CARLOS drain with sanguinous output. Patient is stable for discharge. Please refer to chart for any further details. Physician Insurance Consultant note has been reviewed by physician. Signing provider agrees with the documented findings, assessment, and plan of care. Patient Condition at Discharge: Stable Plan - Discharge Summary Discharge Rx Participant: Yes New Discharge Prescriptions: New Acetaminophen-Codeine 300-30mg [Tylenol w/codeine #3] 1 tab PO Q4H PRN 3 Days #15 tablet PRN Reason: Pain Docusate [Colace] 100 mg PO BID #30 capsule Continue Ibuprofen [Motrin Ib] 200 mg PO Q8H PRN PRN Reason: Pain Ferrous Sulfate [Iron (65 MG Elemental)] 325 mg PO DAILY Cholecalciferol [Vitamin D3 (25 Mcg = 1000 Iu)] 25 mcg PO DIRECTED Discharge Medication List Cholecalciferol [Vitamin D3 (25 Mcg = 1000 Iu)] 25 mcg PO DIRECTED 01/27/23 [History] Ferrous Sulfate [Iron (65 MG Elemental)] 325 mg PO DAILY 01/27/23 [History] Ibuprofen [Motrin Ib] 200 mg PO Q8H PRN 01/27/23 [History] Acetaminophen-Codeine 300-30mg [Tylenol w/codeine #3] 1 tab PO Q4H PRN 3 Days #15 tablet 02/04/23 [Rx] Docusate [Colace] 100 mg PO BID #30 capsule 02/04/23 [Rx] Follow up Appointment(s)/Referral(s): Kendrick Rehman MD [Medical Doctor] - 1 Week Activity/Diet/Wound Care/Special Instructions: No driving while taking Tylenol #3 No lifting over 10 pounds You may shower starting tomorrow, 02/05/23. No soaking or tub baths for 2 weeks Very light activity until you are reevaluated at your follow up appointment with your surgeon Remove surgical dressing in 2 days on 02/06/23 Keep a log of CARLOS drain output and bring with you to your follow-up appointment Milk/strip drains 2-3 times a day Discharge Disposition: HOME SELF-CARE
--- NOTE | 2023-02-04 23:33 | CONS ---
CONSULTATION CHIEF COMPLAINT: Umbilical hernia. HISTORY OF PRESENT ILLNESS: This lady was brought in for an elective umbilical herniorrhaphy. She apparently has otherwise been in good health. REVIEW OF SYSTEMS: She has had no headaches, neurologic issues, chest pain, shortness of breath, nausea, vomiting, diarrhea, melena, renal failure, diabetes, etc. Past medical history, family history, personal and social histories are all otherwise unremarkable and noncontributory. PHYSICAL EXAMINATION: VITAL SIGNS: Blood pressure is 115/78 with a pulse of 67 and respirations of 18. She is afebrile. GENERAL: She appeared to be overweight and in no acute distress. SKIN: Color is normal. Skin is warm and dry. LYMPHATICS: Lymph nodes are not enlarged. HEAD, EARS, EYES, NOSE, MOUTH AND THROAT: Normal. NECK: Neck veins are not distended. CHEST: Clear. CARDIAC: Normal. ABDOMEN: Protuberant. Dressings are dry. EXTREMITIES: Normal. NEUROLOGIC: She is intact. ASSESSMENT: She is admitted to the hospital with diagnosis of abdominal hernia. RECOMMENDATIONS: None. Thank you respectfully, MMODL / IJN: [id number] /
== END 2023-02-04 15:10 | disposition home or self-care (01) ==
LOC: OR 09:40 → 5NMEDONC 13:00 → OR 13:00 → 5NMEDONC 13:22
PROVIDERS: ADMIT Surgery; ATTEND Surgery
DX: K42.0 Umbilical hernia with obstruction, without gangrene (principal); D72.829 Elevated white blood cell count, unspecified; E66.01 Morbid (severe) obesity due to excess calories; Z68.43 Body mass index [BMI] 50.0-59.9, adult; Z86.14 Personal history of Methicillin resistant Staphylococcus aureus infection; Z90.49 Acquired absence of other specified parts of digestive tract; Z98.51 Tubal ligation status; Z87.891 Personal history of nicotine dependence; Z91.040 Latex allergy status; Z98.890 Other specified postprocedural states; Z80.49 Family history of malignant neoplasm of other genital organs
CPT/HCPCS: 49594; 81025; 85025 ×2; 84703; 88302; G0378; C1781; J2250; J0330; J1100; J2710; J0690; J2405; J3010; J1885 ×3; J1170 ×2; J0131; J2704; C9113; J1644 ×2; J2001

== ENCOUNTER → 2023-09-09 | Outpatient (CLI) | payer OTHER ==
--- NOTE | 2023-09-11 21:35 | CT ---
EXAMINATION TYPE: CT abdomen pelvis w con DATE OF EXAM: 09/09/2023 COMPARISON: 1423 INDICATION: Incisional hernia DLP: 4557.20 mGycm, Automated exposure control for dose reduction was used. CONTRAST: 100 mL of Isovue 300. Study performed with Oral Contrast TECHNIQUE: Axial images were obtained from above the diaphragm to the pubic rami in the axial plane a t 5 mm thick sections. Reconstructed images are reviewed on the computer in the coronal plane. FINDINGS: Limited CT sections are obtained the lung bases. The lung bases are clear. CT ABDOMEN: Liver: Normal Spleen: Normal Pancreas: Normal Adrenal glands: The adrenal glands are normal. Gallbladder: Surgically absent Kidneys: No masses are evident. No hydronephrosis is present. No cysts are present. Delayed images were obtained through the kidneys, which remain unremarkable. Aorta: Normal Inferior vena cava: Normal. CT PELVIS: There is an anterior abdominal wall hernia containing nonobstructed small bowel loops. The opening is 5.9 cm. Contrast passes through this area into more distal loops of bowel without obstruc tion. Finding appears stable from comparison. There is skin thickening inferior to the hernia. Correlate for cellulitis. Loops of bowel within the abdomen and pelvis are normal. There are loops of bowel which are incom pletely distended or lack oral contrast limiting their evaluation. Appendix: Not identified. No dilated tubular structure or inflammatory changes evident. Urinary bladder: Normal. Genitourinary structures: Uterus and adnexa appear unremarkable. Osseous structures: No suspicious lytic or sclerotic lesions. IMPRESSION: 1. Anterior abdominal wall hernia with small bowel loops without evidence of obstruction. 2. Thickened skin with inflammatory changes inferior anterior abdominal wall. Correlate for celluliti s
== END | disposition home or self-care (01) ==
LOC: RADCTMAIN 09:08
PROVIDERS: ATTEND Surgery
DX: K43.2 Incisional hernia without obstruction or gangrene (principal); K66.8 Other specified disorders of peritoneum; R23.4 Changes in skin texture
CPT/HCPCS: 74177; Q9967

== ENCOUNTER 2023-10-07 18:13 | Emergency (ER) | payer OTHER ==
[2023-10-07] MEDS: MORPHINE SULFATE 4 MG/ML SYRINGE IVP STA (18:50)
[2023-10-07 19:03] LABS: Basophils % (A) 0 %; Eosinophils # (A) 0.2 k/uL (0-0.7); Eosinophils % (A) 2 %; HCT 43.6 % (34.0-46.0); HGB 14.7 gm/dL (11.4-16.0); Lymphocytes # (A) 2.4 k/uL (1.0-4.8); Lymphocytes % (A) 28 %; MCH 29.4 pg (25.0-35.0); MCHC 33.7 g/dL (31.0-37.0); MCV 87.4 fL (80.0-100.0); Mean Platelet Volume 8.2; Monocytes # (A) 0.4 k/uL (0-1.0); Monocytes % (A) 4 %; Neutrophils # (A) 5.7 k/uL (1.3-7.7); Neutrophils % (A) 64 %; Platelet Count 254 k/uL (150-450); RBC 4.99 m/uL (3.80-5.40); RDW 12.2 % (11.5-15.5); WBC 8.8 k/uL (3.8-10.6)
[2023-10-07 19:12] LABS: ALT 19 U/L (4-34); AST 20 U/L (14-36); African American GFR (CKD) >90 (>60 ml/min/1.73 sqM); Alkaline Phosphatase 55 U/L (38-126); Amylase 49 U/L (30-110); Anion Gap 9 mmol/L; Blood Urea Nitrogen 8 mg/dL (7-17); Calcium 8.7 mg/dL (8.4-10.2); Carbon Dioxide 19 mmol/L (22-30); Chloride 110 mmol/L (98-107); Glucose 104 mg/dL (74-99); Lipase 90 U/L (23-300); Non-African American GFR(CKD) >90 (>60 ml/min/1.73 sqM); Potassium 4.3 mmol/L (3.5-5.1); Sodium 138 mmol/L (137-145); Total Bilirubin 0.4 mg/dL (0.2-1.3); Total Protein 7.2 g/dL (6.3-8.2)
--- NOTE | 2023-10-07 19:42 | ED ---
Abdominal Pain HPI - General Chief Complaint: Abdominal Pain Stated Complaint: Abd Pain Time Seen by Provider: 10/07/23 18:27 Source: patient Mode of arrival: ambulatory Limitations: no limitations - History of Present Illness Initial Comments: 33-year-old female presenting with chief complaint of abdominal pain. Patient has history of ventral hernia repair and recurrence of ventral hernia. Her surgeon is Dr. Rehman. She states that yesterday she started experiencing epigastric discomfort. Feels like a pulling sensation. No nausea vomiting or diarrhea. Her last bowel movement was today. No fevers. Pain is worse with laying flat or standing straight up. - Related Data Home Medications Medication Instructions Recorded Confirmed Cholecalciferol [Vitamin D3 (25 25 mcg PO DIRECTED 01/27/23 02/03/23 Mcg = 1000 Iu)] Ferrous Sulfate [Iron (65 MG 325 mg PO DAILY 01/27/23 02/03/23 Elemental)] Ibuprofen [Motrin Ib] 200 mg PO Q8H PRN 01/27/23 02/03/23 Previous Rx's Medication Instructions Recorded Acetaminophen-Codeine 300-30mg 1 tab PO Q4H PRN 3 Days #15 tablet 02/04/23 [Tylenol w/codeine #3] Docusate [Colace] 100 mg PO BID #30 capsule 02/04/23 Allergies Allergy/AdvReac Type Severity Reaction Status Date / Time latex Allergy Rash/Hives Verified 02/03/23 10:06 Review of Systems ROS Statement: Those systems with pertinent positive or pertinent negative responses have been documented in the HPI. ROS Other: All systems not noted in ROS Statement are negative. Past Medical History Past Medical History: No Reported History Additional Past Medical History / Comment(s): BACK PAIN History of Any Multi-Drug Resistant Organisms: MRSA Date of last positivie culture/infection: 2006 MDRO Source:: LEG Past Surgical History: Section, Cholecystectomy, Hernia Repair, Tubal Ligation Past Anesthesia/Blood Transfusion Reactions: No Reported Reaction Past Psychological History: No Psychological Hx Reported Smoking Status: Former smoker Past Alcohol Use History: None Reported Past Drug Use History: Marijuana - Past Family History Sister(s) Family Medical History: Cancer Additional Family Medical History / Comment(s): CERVICAL Brother(s) History Unknown: Yes Family Medical History: Cancer Mother History Unknown: Yes Family Medical History: Cancer General Exam Limitations: no limitations General appearance: alert, in no apparent distress Head exam: Present: atraumatic, normocephalic, normal inspection Eye exam: Present: normal appearance Neck exam: Present: normal inspection Respiratory exam: Present: normal lung sounds bilaterally. Absent: respiratory distress, wheezes, rales, rhonchi, stridor Cardiovascular Exam: Present: regular rate, normal rhythm, normal heart sounds. Absent: systolic murmur, diastolic murmur, rubs, gallop, clicks GI/Abdominal exam: Present: soft, tenderness, hernia. Absent: distended, guarding, rebound, rigid Extremities exam: Present: normal inspection Neurological exam: Present: alert, oriented X3 Psychiatric exam: Present: normal affect, normal mood Skin exam: Present: warm, dry Course Vital Signs 10/07/23 10/07/23 10/07/23 18:21 20:30 21:40 Temperature 98.7 F 97.5 F L Pulse Rate 83 74 79 Respiratory 16 13 13 Rate Blood Pressure 176/83 149/80 118/94 O2 Sat by Pulse 97 97 97 Oximetry Medical Decision Making - Medical Decision Making Was pt. sent in by a medical professional or institution (, PA, SEO COORDINATOR, urgent care, hospital, or jail...) When possible be specific @ -No Did you speak to anyone other than the patient for history (EMS, parent, family, police, friend...)? What history was obtained from this source @ -No Did you review nursing and triage notes (agree or disagree)? Why? @ -I reviewed and agree with nursing and triage notes Were old charts reviewed (outside hosp., previous admission, EMS record, old EKG, old radiological studies, urgent care reports/EKG's, jail records)? Report findings @ -Previous CT is reviewed Differential Diagnosis (chest pain, altered mental status, abdominal pain women, abdominal pain men, vaginal bleeding, weakness, fever, dyspnea, syncope, headache, dizziness, GI bleed, back pain, seizure, CVA, palpatations, mental health, musculoskeletal)? @ -[facility] Differential Abdominal Pain Women: Appendicitis, Cholecystitis, diverticulosis, ischemic bowel, pancreatitis, hepatitis, UTI, gastroenteritis, AAA, incarcerated hernia, bowel obstruction, constipation, inflammatory bowel, hepatitis, peptic ulcer disease, splenic infarction, perforated viscus, vulvitis, ovarian torsion, PID, kidney stone, placenta abruption... This is not meant to be an all-inclusive list EKG interpreted by me (3pts min.). @ -As above X-rays interpreted by me (1pt min.). @ -None done CT interpreted by me (1pt min.). @ -CT shows anterior abdominal wall hernia the redemonstrated, contains fat and small bowel loops without evidence of obstruction. However partial obstruction cannot be excluded. Please correlate and follow clinically. Changes in the anterior inferior abdominal wall inferior to the hernia appears similar to slightly greater than before. U/S interpreted by me (1pt. min.). @ -None done What testing was considered but not performed or refused? (CT, X-rays, U/S, labs)? Why? @ -None What meds were considered but not given or refused? Why? @ -None Did you discuss the management of the patient with other professionals (professionals i.e. , PA, SEO COORDINATOR, lab, RT, psych nurse, geriatric social work professor, family consultant, teacher, senior commercial loan officer, telephonic case manager)? Give summary @ -No Was smoking cessation discussed for >3mins.? @ -No Was critical care preformed (if so, how long)? @ -No Were there social determinants of health that impacted care today? How? (Homelessness, low income, unemployed, alcoholism, drug addiction, transportation, low edu. Level, literacy, decrease access to med. care, care home, rehab)? @ -No Was there de-escalation of care discussed even if they declined (Discuss DNR or withdrawal of care, Hospice)? DNR status @ -No What co-morbidities impacted this encounter? (DM, HTN, Smoking, COPD, CAD, Cancer, CVA, ARF, Chemo, Hep., AIDS, mental health diagnosis, sleep apnea, morbid obesity)? @ -None Was patient admitted / discharged? Hospital course, mention meds given and route, prescriptions, significant lab abnormalities, going to OR and other pertinent info. @ -33-year-old female presenting with chief complaint of abdominal pain. She has an existing ventral hernia that is causing her pain. No nausea vomiting. She is still having regular bowel movements. Lactic acid is normal at 1.1. Lab work shows no leukocytosis or anemia. CT shows redemonstrated hernia with no signs of obstruction. Also shows edema to the inferior abdominal wall, patient has scarring from previous surgeries over this area, there is no erythema or tenderness suggestive of cellulitis. Hernia is reducible. She is discharged and instructed to follow-up with her surgeon Dr. Rehman. Follow-up with PCP. Iveth shabazz back to ER with any new or worsening symptoms. Discussed return parameters and answered all questions. Patient conveyed verbal understanding and agreed to the plan. I discussed this case in detail with my attending Dr. Muñoz Undiagnosed new problem with uncertain prognosis? @ -No Drug Therapy requiring intensive monitoring for toxicity (Heparin, Nitro, Insulin, Cardizem)? @ -No Were any procedures done? @ -No Diagnosis/symptom? @ -Ventral hernia Acute, or Chronic, or Acute on Chronic? @ -Acute on chronic Uncomplicated (without systemic symptoms) or Complicated (systemic symptoms)? @ -Uncomplicated Side effects of treatment? @ -No Exacerbation, Progression, or Severe Exacerbation? @ -No Poses a threat to life or bodily function? How? (Chest pain, [place], [place], pneumonia, PE, COPD, DKA, ARF, appy, cholecystitis, CVA, Diverticulitis, Homicidal, Suicidal, threat to staff... and all critical care pts) @ -No - Lab Data Result diagrams: 10/07/23 18:41 10/07/23 18:41 Lab Results 10/07/23 10/07/23 10/07/23 Range/Units 18:41 18:41 18:41 WBC 8.8 (3.8-10.6) k/uL RBC 4.99 (3.80-5.40) m/uL Hgb 14.7 (11.4-16.0) gm/dL Hct 43.6 (34.0-46.0) % MCV 87.4 (80.0-100.0) fL MCH 29.4 (25.0-35.0) pg MCHC 33.7 (31.0-37.0) g/dL RDW 12.2 (11.5-15.5) % Plt Count 254 (150-450) k/uL MPV 8.2 Neutrophils % 64 % Lymphocytes % 28 % Monocytes % 4 % Eosinophils % 2 % Basophils % 0 % Neutrophils # 5.7 (1.3-7.7) k/uL Lymphocytes # 2.4 (1.0-4.8) k/uL Monocytes # 0.4 (0-1.0) k/uL Eosinophils # 0.2 (0-0.7) k/uL Basophils # 0.0 (0-0.2) k/uL Sodium 138 (137-145) mmol/L Potassium 4.3 (3.5-5.1) mmol/L Chloride 110 H (98-107) mmol/L Carbon Dioxide 19 L (22-30) mmol/L Anion Gap 9 mmol/L BUN 8 (7-17) mg/dL Creatinine 0.65 (0.52-1.04) mg/dL Est GFR (CKD-EPI)AfAm >90 (>60 ml/min/1.73 sqM) Est GFR (CKD-EPI)NonAf >90 (>60 ml/min/1.73 sqM) Glucose 104 H (74-99) mg/dL Plasma Lactic Acid Miquel 1.1 (0.7-2.0) mmol/L Calcium 8.7 (8.4-10.2) mg/dL Total Bilirubin 0.4 (0.2-1.3) mg/dL AST 20 (14-36) U/L ALT 19 (4-34) U/L Alkaline Phosphatase 55 (38-126) U/L Total Protein 7.2 (6.3-8.2) g/dL Albumin 4.0 (3.5-5.0) g/dL Amylase 49 (30-110) U/L Lipase 90 (23-300) U/L Disposition Clinical Impression: Ventral hernia Disposition: HOME SELF-CARE Condition: Good Instructions (If sedation given, give patient instructions): Ventral Hernia (ED ) Additional Instructions: Follow-up with PCP and surgeon. Report back to ER with any new or worsening symptoms. Is patient prescribed a controlled substance at d/c from ED?: No Referrals: Edgar Mckeon DO [Primary Care Provider] - 1-2 days Kendrick Rehman MD [Medical Doctor] - 1-2 days Time of Disposition: 21:26
[2023-10-07] MEDS: KETOROLAC 15 MG/ML 1 ML VIAL IVP STA (20:29)
--- NOTE | 2023-10-07 20:48 | CT ---
EXAMINATION TYPE: CT abdomen pelvis w con CT DLP: 4337 mGycm, Automated exposure control for dose reduction was used. DATE OF EXAM: 10/07/2023 7:38 PM COMPARISON: CT 09/09/2023 CLINICAL INDICATION:Female, 33 years old with history of abdominal pain, hernia; Patient was told marin t her hernia re-opened at surgical site on 09/09/23 (in PACS); Worsening abdominal pain. TECHNIQUE: Axial CT of the abdomen and pelvis. Sagittal and coronal reformats were created on a [employer] workstation. Contrast used:100 ml mL of Isovue 370 with IV Contrast, (none if empty) Oral contrast used: without Oral Contrast (none if empty) FINDINGS: LOWER CHEST: Heart size upper normal. Lung bases clear. ABDOMEN LIVER: Unremarkable GALLBLADDER AND BILE DUCTS: The gallbladder is surgically absent. Biliary tree does not appear pathol ogically dilated. PANCREAS: Unremarkable. SPLEEN: Unremarkable. ADRENAL GLANDS: Unremarkable. KIDNEYS AND URETERS: Kidneys enhance symmetrically. No evidence of hydronephrosis or visible renal ca lculus. The ureters are unremarkable. PELVIS BLADDER: Unremarkable REPRODUCTIVE: Unremarkable uterus and ovaries however not well assessed by CT. Bilateral adnexal clip s appears related to tubal ligation. Tampon is present. ABDOMEN & PELVIS STOMACH AND BOWEL: Stomach and small bowel are nondistended, no evidence of obstruction. Redemonstra tion of an anterior abdominal wall hernia which contains fat and protruding loops of small bowel with out evidence of complete obstruction, however one portion of the herniated loops appears slightly lar tri and fluid-filled compared to the rest, and a partial obstruction cannot be excluded. Size of the hernia is unchanged. Hernia neck is again about 6.7 cm. At the inferior aspect of the hernia extendin g along the anterior abdominal pelvic wall, there is redemonstration of skin thickening with subcutan eous fat stranding which appears similar to slightly greater than before. No focal fluid collection i s seen. The appendix is not seen with certainty but there is no inflammatory process seen in the chelsy cecal region. Moderate amount of stool throughout the colon without focal acute abnormality demonstr ated. PERITONEUM/RETROPERITONEUM: No evidence of pneumoperitoneum or free fluid. VASCULATURE: Aorta and major branches are grossly unremarkable. No AAA. Portal veins are enhancing. Splenic vein is patent. LYMPH NODES: No evidence for lymphadenopathy. SOFT TISSUE/ABDOMINAL WALL: Please see above. MUSCULOSKELETAL: No acute osseous abnormalities. Mild disc degeneration changes are present throughou t the thoracolumbar spine. IMPRESSION: 1. Anterior abdominal wall hernia redemonstrated, contains fat and small bowel loops without evidenc e of obstruction. However, partial obstruction cannot be excluded. Please correlate and follow clinic ally. 2. Changes in the anterior inferior abdominal wall inferior to the hernia appear similar to slightly greater than before, suggestive of edema and cellulitis.
[2023-10-07 21:01] VITALS: RESP 13
[2023-10-07 22:04] VITALS: BP 118/94; PULSE 79; TEMP 97.5
== END 2023-10-07 21:40 | disposition home or self-care (01) ==
LOC: EC 18:13
DX: K43.9 Ventral hernia without obstruction or gangrene (principal); F12.90 Cannabis use, unspecified, uncomplicated; Z87.891 Personal history of nicotine dependence; Z91.040 Latex allergy status
CPT/HCPCS: 36415; 80053; 82150; 83605; 83690; 85025; 74177; 99285; 96374; 96375; J2270; J1885; Q9967